=== PATIENT | male | born 1990 | race American Indian/Alaskan Native ===

== ENCOUNTER 2019-07-22 12:00 | Emergency (ER) | payer SELFPAY ==
--- NOTE | 2019-07-22 13:21 | Emergency Department Report ---
Chief Complaint: Abdominal Pain Stated Complaint: ABD PAIN - HPI History of Present Illness: 28 y/o male p/w r sided abd pain / now abd soft non tender and benign needs cbc, bmp, exam, ua, repeat abd pain states no testicular pain very low suspicion for appendicitis Vital Signs 07/22/19 13:20 Temperature 98.1 F Pulse Rate 58 L Respiratory 18 Rate Blood Pressure 109/65 O2 Sat by Pulse 100 Oximetry MSE screening note: Focused history and physical exam performed. Due to findings the following was ordered: ED Disposition for MSE Condition: Stable
[2019-07-22 13:23] VITALS: BP 109/65
[2019-07-22 15:10] LABS: Hematocrit 44.2 % (35.5-45.6); Hemoglobin 14.3 gm/dl (11.8-15.2); Mean Corpuscular HGB Conc 32 % (32-34); Mean Corpuscular Volume 85 fl (84-94); Platelet Count 253 K/mm3 (140-440); Red Blood Count 5.22 M/mm3 (3.65-5.03); Red Cell Distribution Width 13.6 % (13.2-15.2)
[2019-07-22 15:27] LABS: Alanine Aminotransferase 30 units/L (7-56); Albumin 4.9 g/dL (3.9-5); BUN/Creatinine Ratio 16; Blood Urea Nitrogen 13 mg/dL (9-20); Calcium 9.9 mg/dL (8.4-10.2); Hemolysis Index 4
[2019-07-22 15:28] LABS: Color,Urine Yellow (Yellow)
[2019-07-22 15:29] LABS: Bilirubin,Urine NEG (Negative); Blood,Urine LG (Negative); Mucus,Urine 3+ /HPF; Sperm,Urine FEW /HPF (NP); Urobilinogen,Urine < 2.0 mg/dL (<2.0)
[2019-07-22 15:31] LABS: RBC,Urine > 182.0 /HPF (0.0-6.0)
[2019-07-22 16:49] LABS: Bilirubin,Urine NEG (Negative); Blood,Urine MOD (Negative); Color,Urine Yellow (Yellow); Mucus,Urine FEW /HPF; Protein,Urine <15 mg/dL mg/dL (Negative); Urobilinogen,Urine < 2.0 mg/dL (<2.0); WBC,Urine < 1.0 /HPF (0.0-6.0)
--- NOTE | 2019-07-22 18:01 | Ultrasound Report ---
ULTRASOUND ABDOMEN, COMPLETE INDICATION: right abdominal pain COMPARISON: None available. FINDINGS: Pancreas: Normal. Abdominal Aorta: Normal. IVC: Normal. Liver: Normal. Gallbladder: Normal. Bile ducts: Normal. Common Bile Duct measures 3-4 mm. Right Kidney: There are couple punctate echogenic foci. The right kidney is otherwise unremarkable. Left Kidney: Normal. Spleen: Normal. Free fluid: None. Additional Findings: None. IMPRESSION: 1. No acute findings. 2. There are a few punctate echogenic foci in the right kidney which could be tiny nonobstructing vinny yceal stones. There is no hydronephrosis. Signer Name: Anuj Khan MD Signed: 07/22/2019 5:57 PM Workstation Name: [id number]
--- NOTE | 2019-07-22 18:20 | Emergency Department Report ---
ED Abdominal Pain HPI - General Chief Complaint: Abdominal Pain Stated Complaint: ABD PAIN Time Seen by Provider: 07/22/19 16:08 Source: patient Mode of arrival: Ambulatory Limitations: No Limitations - History of Present Illness Initial Comments: This is a 28-year-old male nontoxic, well nourished in appearance, no acute signs of distress presents to the ED with c/o of right flank pain with radiation to right lower abdominal area. Patient denies any n/v. Patient describes abdominal pain as cramping and aching with level of 3/10. Patient stated symptoms are resolving and subsiding. Patient denies chest pain, short of breath, fever, chills, headache, stiff neck, numbness or tingling. Patient denies any diarrhea or constipation. Patient denies any recent travels. Patient denies any allergies or past medical history. MD Complaint: abdominal pain -: days(s) Location: R flank Radiation: RLQ Migration to: no migration Severity: mild Severity scale (0 -10): 3 Quality: cramping, aching Consistency: now resolved Improves With: nothing Worsens With: nothing Associated Symptoms: denies other symptoms. denies: nausea, vomiting, diarrhea, fever, chills, constipation, dysuria, hematemesis, hematochezia, melena, hematuria, anorexia, syncope - Related Data Previous Rx's Medication Instructions Recorded Last Taken Type Ketorolac [Toradol] 10 mg PO Q6H PRN #15 tablet 07/22/19 Unknown Rx Allergies Allergy/AdvReac Type Severity Reaction Status Date / Time No Known Allergies Allergy Unverified 07/22/19 12:11 ED Review of Systems ROS: Stated complaint: ABD PAIN Other details as noted in HPI Constitutional: denies: chills, fever Eyes: denies: eye pain, eye discharge, vision change ENT: denies: ear pain, throat pain Respiratory: denies: cough, shortness of breath, wheezing Cardiovascular: denies: chest pain, palpitations Endocrine: no symptoms reported Gastrointestinal: abdominal pain. denies: nausea, vomiting, diarrhea Genitourinary: denies: urgency, dysuria Musculoskeletal: denies: back pain, joint swelling, arthralgia Skin: denies: rash, lesions Neurological: denies: headache, weakness, paresthesias Psychiatric: denies: anxiety, depression Hematological/Lymphatic: denies: easy bleeding, easy bruising ED Past Medical Hx - Past Medical History Previous Medical History?: No - Surgical History Past Surgical History?: No - Social History Smoking Status: Current Every Day Smoker Substance Use Type: None - Medications Home Medications: Home Medications Medication Instructions Recorded Confirmed Last Taken Type Ketorolac [Toradol] 10 mg PO Q6H PRN #15 tablet 07/22/19 Unknown Rx ED Physical Exam - General Limitations: No Limitations General appearance: alert, in no apparent distress - Head Head exam: Present: atraumatic, normocephalic - Neck Neck exam: Present: normal inspection, full ROM. Absent: tenderness, meningismus, lymphadenopathy - Respiratory Respiratory exam: Present: normal lung sounds bilaterally. Absent: respiratory distress, wheezes, rales, rhonchi, stridor, chest wall tenderness, accessory muscle use, decreased breath sounds, prolonged expiratory - Cardiovascular Cardiovascular Exam: Present: regular rate, normal rhythm, normal heart sounds. Absent: bradycardia, tachycardia, irregular rhythm, systolic murmur, diastolic murmur, rubs, gallop - GI/Abdominal GI/Abdominal exam: Present: soft, normal bowel sounds. Absent: distended, ten derness, guarding, rebound, rigid, diminished bowel sounds - Extremities Exam Extremities exam: Present: normal inspection, full ROM - Back Exam Back exam: Present: normal inspection, full ROM. Absent: tenderness, CVA ten derness (R), CVA tenderness (L), muscle spasm, paraspinal tenderness, vertebral tenderness, rash noted - Neurological Exam Neurological exam: Present: alert, oriented X3, normal gait - Psychiatric Psychiatric exam: Present: normal affect, normal mood - Skin Skin exam: Present: warm, dry, intact, normal color. Absent: rash ED Course Vital Signs 07/22/19 13:20 Temperature 98.1 F Pulse Rate 58 L Respiratory 18 Rate Blood Pressure 109/65 O2 Sat by Pulse 100 Oximetry - Reevaluation(s) Reevaluation #1: 07/22/19 18:18 Patient is speaking in full sentences with no signs of distress noted. ED Medical Decision Making - Lab Data Result diagrams: 07/22/19 14:49 07/22/19 14:49 - Medical Decision Making This is a 24-year-old male that presents with kidney stone. Patient is stable and was examined by me. There is no abdominal tenderness. Negative signs of symptoms of appendicitis. Labs obtained. UA obtained. CT/US of abdomen obtained and dictated by the radiologist. Patient is notified of the report with no questions noted by the patient. Vital signs are stable prior to discharge. Patient stated he does not have any symptoms right now. Patient was notified of strict precatuions of appendictis symptoms and to return to the ED if symptoms occurs as soon as possible. Patient was also instructed to Follow-up with a primary care and urologist doctor in 3-5 days or if symptoms worsen and continue return to emergency room as soon as possible. At time of discharge, the patient does not seem toxic or ill in appearance. No acute signs of distress noted. Patient agrees to discharge treatment plan of care. No further questions noted by the patient. Critical care attestation.: If time is entered above; I have spent that time in minutes in the direct care of this critically ill patient, excluding procedure time. ED Disposition Clinical Impression: Right kidney stone Disposition: DC-01 TO HOME OR SELFCARE Is pt being admited?: No Does the pt Need Aspirin: No Condition: Stable Instructions: Kidney Stones (ED) Additional Instructions: Follow-up with a primary care and urologist doctor in 3-5 days or if symptoms worsen and continue return to emergency room as soon as possible. Prescriptions: Ketorolac [Toradol] 10 mg PO Q6H PRN #15 tablet PRN Reason: Pain Referrals: MADDIE DENIS MD [Primary Care Provider] - 3-5 Days KRISTY CUELLAR MD [Staff Physician] - 3-5 Days PENELOPE VALERIO MD [Staff Physician] - 3-5 Days [facility] [Outside] - 3-5 Days Forms: Work/School Release Form(ED)
--- NOTE | 2019-07-22 18:47 | Cat Scan Report ---
CT abdomen pelvis wo con INDICATION: Right lower quadrant pain. TECHNIQUE: All CT scans at this location are performed using the following dose modulation technique: Automated exposure control. CONTRAST: None. COMPARISON: None available. CT ABDOMEN: Evaluation of the parenchymal organs demonstrates 2 nonobstructing right renal stones wit h the larger measuring 3 mm. The remaining parenchymal organs are unremarkable. Negative for abdominal mass, fluid or inflammation. The bowel is nondilated and thickened. CT PELVIS: Negative for distal ureteral stone, pelvic fluid collection or inflammation. The appendix is mildly prominent in size measuring 7 mm (best seen series 3, image 373. There is no adjacent infla mmation. IMPRESSION: 1. Small nonobstructing right renal stones. 2. Appendix prominent in size, but demonstrates no adjacent inflammation. Signer Name: Timmy Flores MD Signed: 07/22/2019 6:43 PM Workstation Name: [id number]
== END 2019-07-22 19:34 | disposition home or self-care (01) ==
LOC: ED 12:00
DX: N20.0 Calculus of kidney (principal); F17.200 Nicotine dependence, unspecified, uncomplicated
CPT/HCPCS: 36415; 74176; 76700; 80053; 81001; 82550; 83735; 85027